=== PATIENT | female | born 1980 | race Caucasian/White ===

== ENCOUNTER 2018-05-14 13:12 | Inpatient (IN) | payer MEDICAID ==
[~2018-05-14] VITALS: Ht 165.1 cm; Wt 76.3 kg
[~2018-05-14 13:12] MED LIST: CITA10TA8 PO; HYDR25TA11 PO; OLAN2.5T3 PO; OXCA150T3 PO
--- NOTE | 2018-05-14 13:12 | NUR ---
CASIE on 1999 from [facility] walk-in clinic for med clearance, pt reports SI ("I want to swallow glass, my meds need to be changed but my Dr won't do anything"), AAO x4, pt reports she is med compliant; hx schitzoaffective, bipolar, panic d/o; pt change dinto gown, responds approp to staff, NAD, comfort measures provided, pt in safe environment, awaiting sitter, will continue to monitor frequently; personal belongings in bags x2 placed in locker; urine sample sent to lab.
[2018-05-14] MEDS ORDERED: BENZ0.5T35 PO (13:47)
[2018-05-14] MEDS ORDERED: LURA60TA PO (13:47)
[2018-05-14] MEDS ORDERED: TOPI50TA8 PO (13:47)
[2018-05-14] MEDS ORDERED: ALPR-475 PO (13:47)
[2018-05-14] MEDS ORDERED: DOXY50TA2 PO (13:47)
[2018-05-14] MEDS ORDERED: LITH300C PO (13:47)
[2018-05-14] MEDS ORDERED: DIVA-61 PO (13:47)
[2018-05-14] MEDS ORDERED: LOXA5CAP PO (13:47)
[2018-05-14] MEDS ORDERED: PROP10TA16 PO (13:47)
[2018-05-14 13:54] LABS: AMPHETAMINE SCREEN, URINE Negative (Negative); BARBITURATE SCREEN, URINE Negative (Negative); BENZODIAZEPINE SCREEN, URINE Negative (Negative); CANNABINOID SCREEN, URINE Negative (Negative); COCAINE SCREEN, URINE Negative (Negative); METHADONE SCREEN, URINE Negative (Negative); OPIATE SCREEN, URINE Negative (Negative)
--- NOTE | 2018-05-14 14:01 | NUR ---
pt upright on gurney awake, calm & comfortable, responds approp to staff, NAD, comfort measures provided, awaiting meal tray, pt remains in safe environment, awaiting sitter, will continue to monitor frequently.
[2018-05-14 14:15] LABS: BASOPHILS # (AUTO) 0.03 x10^3/uL (0-0.1); BASOPHILS % (AUTO) 0 % (0-1); EOSINOPHILS # (AUTO) 0.29 x10^3/uL (0-0.4); EOSINOPHILS % (AUTO) 2 % (1-7); LYMPHOCYTES # (AUTO) 2.54 x10^3/uL (1-3.4); LYMPHOCYTES % (AUTO) 22 % (22-44); MD NO; MEAN CORPUSCULAR HEMOGLOBIN 30.2 pg (27.0-34.8); MEAN CORPUSCULAR HGB CONC 34.3 g/dL (32.4-35.8); MEAN CORPUSCULAR VOLUME 88.2 fL (80-100); MEAN PLATELET VOLUME 8.3 fL (7.4-10.4); MONOCYTES # (AUTO) 0.58 x10^3/uL (0.2-0.8); MONOCYTES % (AUTO) 5 % (2-9); NEUTROPHILS # (AUTO) 8.25 x10^3/uL (1.8-6.8); NEUTROPHILS % (AUTO) 71 % (42-75); PLATELET COUNT 365 x10^3/uL (130-400); RED BLOOD COUNT 3.97 x10^6/uL (3.82-5.3); RED CELL DISTRIBUTION WIDTH 11.7 % (9.6-15.2)
[2018-05-14 14:26] LABS: ALANINE AMINOTRANSFERASE 24 U/L (12-78); ALBUMIN 3.4 g/dL (3.4-5.0); ANION GAP 9 mmol/L (5-15); CALCIUM 9.2 mg/dL (8.5-10.1); CHLORIDE 109 mmol/L (98-107); CREATININE 0.76 mg/dL (0.55-1.02); SALICYLATE LEVEL 2.3 mg/dL (2.8-20.0)
[2018-05-14] MEDS ORDERED: LORazepam 1MG TABLET ONE (14:30)
[2018-05-14] MEDS ORDERED: LORazepam 1MG TABLET PO ONE (14:30)
[2018-05-14 14:31] LABS: ALKALINE PHOSPHATASE 91 U/L (45-117); BILIRUBIN,TOTAL 0.3 mg/dL (0.2-1.0); TOTAL PROTEIN 7.1 g/dL (6.4-8.2)
[2018-05-14 14:34] LABS: ACETAMINOPHEN < 2 mcg/mL (10-30)
[2018-05-14 14:56] LABS: FREE T4 (FREE THYROXINE) 2.56 ng/dL (0.76-1.46)
--- NOTE | 2018-05-14 15:22 | NUR ---
pt transferred to rm 30, report given to FAUSTO Fraser at for consult, meal tray delivered.
--- NOTE | 2018-05-14 15:38 | NUR ---
ADMITTING DR AT BEDSIDE ASSUME CARE
[2018-05-14] MEDS ORDERED: LOXA25CA PO (15:52)
[2018-05-14] MEDS ORDERED: DIVA-59 PO (15:53)
[2018-05-14] MEDS ORDERED: LITH300T30 PO (15:54)
[2018-05-14] MEDS ORDERED: LITH600C PO (15:54)
[2018-05-14] MEDS: ENOXAPARIN 40 MG/0.4 ML SQ SCH (16:00)
--- NOTE | 2018-05-14 16:00 | NUR ---
PT "DOES NOT LIKE NEEDLES" REFUSED GABBYX
[2018-05-14 16:58] LABS: HEMOGLOBIN A1C 4.8 % (4.2-6.3)
--- NOTE | 2018-05-14 17:59 | NUR ---
PT REFUSES IV, WILL REATTEMPT AFTER XANAX
[2018-05-14] MEDS: METHIMAZOLE 5 MG TAB PO SCH (18:00)
[2018-05-14] MEDS: PROPRANOLOL 20 MG TABLET PO SCH ×2 (18:00→22:00)
--- NOTE | 2018-05-14 19:23 | NUR ---
placed call to dr. moore, pts depakote med is different from home, at home she takes 1250mg at night, order is only for 250mg. dr moore wants to keep dose at 250. pt also requesting medication to help her sleep but md declined.
--- NOTE | 2018-05-14 20:56 | NUR ---
RECEIVED REPORT FROM EVENS MONROE TO ASSUME PT. CARE. PHARMACY CALLED FOR NIGHT MEDS.
[2018-05-14] MEDS ORDERED: BENZTROPINE 1 MG TABLET ONE (21:28)
[2018-05-14] MEDS: LOXAPINE 25 MG PO SCH (22:39)
[2018-05-14] MEDS: DIVALPROEX 250 MG TAB.ER.24H PO SCH (22:39)
[2018-05-14] MEDS: LITHIUM CARBONATE 300 MG CAPSULE PO SCH (22:39)
[2018-05-14] MEDS: TOPIRAMATE 25 MG TABLET PO SCH (22:39)
[2018-05-14] MEDS: BENZTROPINE 1 MG TABLET PO SCH (22:39)
[2018-05-14] MEDS: SODIUM CHLORIDE 0.9% 1,000 ML IV SCH (22:40)
--- NOTE | 2018-05-14 22:50 | NUR ---
PT. HAS BEEN MEDICATED PER MAY. PT. REFUSIGN IV AND STATING "I WILL JUST DRINK WATER, I DON'T BELIEVE I NEED THAT AT THIS TIME." PT. DOES HAVE AUTOMOBILE CLUB INFORMATION CLERK IN PLACE AND UNHOOKS IT AND HOOKS IT BACK UP WHEN GOING TO THE BR. PT. AMBUALATE IN CHRISTINE WITH STEADY GAIT AND HAS BEEN COOPERATIVE WITH THIS NURSE THUS FAR. PT. WAS GIVEN A PILLOW PER REQUEST. PT. BRUSHED TEETH AND GAVE TOOTHBRUSH/PASTE BACK TO SITTER FOR SECUREMENT. VS WERE UPDATED AND STABLE. PT. DENIES ANY OTHER NEEDS. SITTER IS IN CHRISTINE FOR OBS.
--- NOTE | 2018-05-15 00:10 | NUR ---
RECEIVED REPORT ON PT FROM BILL HORNER.
--- NOTE | 2018-05-15 02:17 | NUR ---
PT RESTING CALMLY IN BED, RESP EVEN AND NON LABORED. SITTER AT DOOR. NO STATED NEEDS.
--- NOTE | 2018-05-15 03:12 | NUR ---
PT RESTING CALMLY IN BED WITH EYES CLOSED. NO NOTED DISSTRESS. NO STATED NEEDS. SITTER AT DOOR. RESP EVEN AND NON-LABORED.
--- NOTE | 2018-05-15 04:26 | NUR ---
PT RESTING CALMLY IN BED WITH EYES CLOSED. NO NOTED DISSTRESS. NO STATED NEEDS. SITTER AT DOOR. RESP EVEN AND NON-LABORED.
--- NOTE | 2018-05-15 05:13 | NUR ---
PT RESTING CALMLY IN BED WITH EYES CLOSED. NO STATED NEEDS. SITTER AT DOOR. RESP EVEN AND NON-LABORED.
[2018-05-15] MEDS: SODIUM CHLORIDE 0.9% 1,000 ML IV SCH ×2 (05:14→18:34)
[2018-05-15 05:47] LABS: BASOPHILS # (AUTO) 0.02 x10^3/uL (0-0.1); BASOPHILS % (AUTO) 0 % (0-1); EOSINOPHILS % (AUTO) 3 % (1-7); LYMPHOCYTES # (AUTO) 3.29 x10^3/uL (1-3.4); LYMPHOCYTES % (AUTO) 33 % (22-44); MD NO; MEAN CORPUSCULAR HEMOGLOBIN 30.4 pg (27.0-34.8); MEAN CORPUSCULAR HGB CONC 34.4 g/dL (32.4-35.8); MEAN CORPUSCULAR VOLUME 88.4 fL (80-100); MEAN PLATELET VOLUME 8.1 fL (7.4-10.4); MONOCYTES # (AUTO) 0.74 x10^3/uL (0.2-0.8); MONOCYTES % (AUTO) 7 % (2-9); NEUTROPHILS # (AUTO) 5.68 x10^3/uL (1.8-6.8); NEUTROPHILS % (AUTO) 57 % (42-75); PLATELET COUNT 328 x10^3/uL (130-400); RED BLOOD COUNT 3.53 x10^6/uL (3.82-5.3); RED CELL DISTRIBUTION WIDTH 11.6 % (9.6-15.2)
[2018-05-15 05:55] LABS: ALBUMIN 2.9 g/dL (3.4-5.0); ANION GAP 5 mmol/L (5-15); CALCIUM 8.6 mg/dL (8.5-10.1); CHLORIDE 112 mmol/L (98-107)
[2018-05-15 05:59] LABS: ALANINE AMINOTRANSFERASE 21 U/L (12-78); ALKALINE PHOSPHATASE 77 U/L (45-117); BILIRUBIN,TOTAL 0.2 mg/dL (0.2-1.0); CREATININE 0.66 mg/dL (0.55-1.02); TOTAL PROTEIN 5.9 g/dL (6.4-8.2)
--- NOTE | 2018-05-15 06:34 | NUR ---
PT RESTING CALMLY IN BED UNDER BED SHEET. NO NOTED DISSTRESS. NO STATED NEEDS. SITTER AT DOOR. RESP EVEN AND NON-LABORED.
--- NOTE | 2018-05-15 06:59 | NUR ---
BEDSIDE REPORT O KRISTINA. MEDS REQUESTED FROM PHARMACY
--- NOTE | 2018-05-15 07:58 | NUR ---
cardiac rhythm strip printed and placed on chart
[2018-05-15] MEDS: BENZTROPINE 1 MG TABLET PO SCH ×2 (12:30→20:45)
[2018-05-15] MEDS: LITHIUM CARBONATE 300 MG CAPSULE PO SCH ×2 (12:31→20:55)
[2018-05-15] MEDS: METHIMAZOLE 5 MG TAB PO SCH (12:31)
[2018-05-15] MEDS: TOPIRAMATE 25 MG TABLET PO SCH ×2 (12:31→20:45)
[2018-05-15] MEDS: PROPRANOLOL 20 MG TABLET PO SCH ×3 (12:32→22:00)
[2018-05-15] MEDS: LOXAPINE 25 MG PO SCH ×3 (12:32→20:44)
[2018-05-15 12:47] VITALS: BP 118/64
--- NOTE | 2018-05-15 15:03 | NUR ---
PT TO FLOOR WITH PRIMARY RN JASE.
[2018-05-15] MEDS: ENOXAPARIN 40 MG/0.4 ML SQ SCH (16:00)
[2018-05-15] MEDS ORDERED: PROPRANOLOL 10 MG TABLET ONE (16:06)
[2018-05-15 20:22] VITALS: BP 111/77
[2018-05-15] MEDS: DIVALPROEX 250 MG TAB.ER.24H PO SCH (20:44)
[2018-05-16 06:15] VITALS: BP 104/68
[2018-05-16] MEDS: PROPRANOLOL 20 MG TABLET PO SCH ×3 (06:17→20:48)
[2018-05-16] MEDS: SODIUM CHLORIDE 0.9% 1,000 ML IV SCH ×2 (07:54→19:42)
[2018-05-16] MEDS: LOXAPINE 25 MG PO SCH ×3 (08:08→20:47)
[2018-05-16] MEDS: BENZTROPINE 1 MG TABLET PO SCH ×2 (08:08→20:47)
[2018-05-16] MEDS: TOPIRAMATE 25 MG TABLET PO SCH ×2 (08:09→20:48)
[2018-05-16] MEDS: METHIMAZOLE 5 MG TAB PO SCH (08:09)
[2018-05-16] MEDS: LITHIUM CARBONATE 300 MG CAPSULE PO SCH ×2 (08:09→20:46)
[2018-05-16 08:41] LABS: FREE T4 (FREE THYROXINE) 2.11 ng/dL (0.76-1.46)
[2018-05-16 08:42] LABS: THYROID STIMULATING HORMONE < 0.005 mIU/L (0.358-3.740)
[2018-05-16] MEDS: ENOXAPARIN 40 MG/0.4 ML SQ SCH (16:00)
[2018-05-16 18:52] VITALS: BP 115/77
[2018-05-16] MEDS: DIVALPROEX 250 MG TAB.ER.24H PO SCH (20:48)
[2018-05-17 06:34] VITALS: BP 100/65
[2018-05-17] MEDS: PROPRANOLOL 20 MG TABLET PO SCH ×3 (06:35→20:49)
[2018-05-17] MEDS: TOPIRAMATE 25 MG TABLET PO SCH ×2 (08:59→20:49)
[2018-05-17] MEDS: METHIMAZOLE 5 MG TAB PO SCH (08:59)
[2018-05-17] MEDS: BENZTROPINE 1 MG TABLET PO SCH ×2 (09:00→20:49)
[2018-05-17] MEDS: LOXAPINE 25 MG PO SCH ×3 (09:00→20:48)
[2018-05-17] MEDS: LITHIUM CARBONATE 300 MG CAPSULE PO SCH ×2 (09:00→20:48)
[2018-05-17] MEDS: NORGESTIMATE-ETHINYL ESTRADIOL TABLET PO SCH (09:15)
[2018-05-17] MEDS: SODIUM CHLORIDE 0.9% 1,000 ML IV SCH ×2 (10:34→22:38)
[2018-05-17] MEDS: NICOTINE 14MG/24 HR PATCH.TD24 TD SCH (11:51)
[2018-05-17 14:05] VITALS: BP 117/80
[2018-05-17] MEDS: ENOXAPARIN 40 MG/0.4 ML SQ SCH (16:35)
[2018-05-17 19:21] VITALS: BP 112/77
[2018-05-17] MEDS: DIVALPROEX 250 MG TAB.ER.24H PO SCH (20:49)
[2018-05-18 01:11] VITALS: BP 97/66
[2018-05-18 08:19] VITALS: BP 114/80
[2018-05-18] MEDS: BENZTROPINE 1 MG TABLET PO SCH ×2 (08:24→20:11)
[2018-05-18] MEDS: TOPIRAMATE 25 MG TABLET PO SCH ×2 (08:24→20:09)
[2018-05-18] MEDS: PROPRANOLOL 20 MG TABLET PO SCH ×3 (08:24→20:10)
[2018-05-18] MEDS: LOXAPINE 25 MG PO SCH ×3 (08:24→20:11)
[2018-05-18] MEDS: METHIMAZOLE 5 MG TAB PO SCH (08:24)
[2018-05-18] MEDS: LITHIUM CARBONATE 300 MG CAPSULE PO SCH ×2 (08:25→20:11)
[2018-05-18] MEDS: NORGESTIMATE-ETHINYL ESTRADIOL TABLET PO SCH (08:25)
[2018-05-18 09:02] LABS: FREE T4 (FREE THYROXINE) 2.31 ng/dL (0.76-1.46)
[2018-05-18 09:05] LABS: THYROID STIMULATING HORMONE < 0.005 mIU/L (0.358-3.740)
[2018-05-18] MEDS: NICOTINE 14MG/24 HR PATCH.TD24 TD SCH (12:06)
[2018-05-18] MEDS: SODIUM CHLORIDE 0.9% 1,000 ML IV SCH ×2 (13:03→19:58)
[2018-05-18 13:37] VITALS: BP 118/79
[2018-05-18] MEDS: ENOXAPARIN 40 MG/0.4 ML SQ SCH (15:09)
[2018-05-18 19:08] VITALS: BP 111/71
[2018-05-18] MEDS: DIVALPROEX 250 MG TAB.ER.24H PO SCH (20:12)
[2018-05-19 01:38] VITALS: BP 104/70
[2018-05-19 05:47] LABS: CREATININE 0.62 mg/dL (0.55-1.02)
[2018-05-19 08:06] LABS: FREE T4 (FREE THYROXINE) 1.99 ng/dL (0.76-1.46)
[2018-05-19 08:08] LABS: THYROID STIMULATING HORMONE < 0.005 mIU/L (0.358-3.740)
[2018-05-19 08:53] VITALS: BP 113/76
[2018-05-19] MEDS: LOXAPINE 25 MG PO SCH ×3 (08:56→20:38)
[2018-05-19] MEDS: PROPRANOLOL 20 MG TABLET PO SCH ×3 (08:56→20:38)
[2018-05-19] MEDS: METHIMAZOLE 5 MG TAB PO SCH (08:57)
[2018-05-19] MEDS: LITHIUM CARBONATE 300 MG CAPSULE PO SCH ×2 (08:57→20:39)
[2018-05-19] MEDS: TOPIRAMATE 25 MG TABLET PO SCH ×2 (08:57→20:38)
[2018-05-19] MEDS: NORGESTIMATE-ETHINYL ESTRADIOL TABLET PO SCH (08:57)
[2018-05-19] MEDS: BENZTROPINE 1 MG TABLET PO SCH ×2 (08:57→20:39)
[2018-05-19] MEDS: NICOTINE 14MG/24 HR PATCH.TD24 TD SCH (12:55)
[2018-05-19 13:17] VITALS: BP 118/79
[2018-05-19] MEDS: SODIUM CHLORIDE 0.9% 1,000 ML IV SCH (15:54)
[2018-05-19] MEDS: ENOXAPARIN 40 MG/0.4 ML SQ SCH (15:58)
[2018-05-19 19:35] VITALS: BP 103/66
[2018-05-19] MEDS: DIVALPROEX 250 MG TAB.ER.24H PO SCH (20:38)
[2018-05-20] MEDS: SODIUM CHLORIDE 0.9% 1,000 ML IV SCH ×2 (05:14→18:34)
[2018-05-20 07:54] VITALS: BP 109/40
[2018-05-20 08:05] LABS: BASOPHILS # (AUTO) 0.03 x10^3/uL (0-0.1); BASOPHILS % (AUTO) 0 % (0-1); EOSINOPHILS # (AUTO) 0.25 x10^3/uL (0-0.4); EOSINOPHILS % (AUTO) 3 % (1-7); LYMPHOCYTES % (AUTO) 28 % (22-44); MD NO; MEAN CORPUSCULAR HEMOGLOBIN 29.4 pg (27.0-34.8); MEAN CORPUSCULAR HGB CONC 33.5 g/dL (32.4-35.8); MEAN CORPUSCULAR VOLUME 87.7 fL (80-100); MEAN PLATELET VOLUME 7.9 fL (7.4-10.4); MONOCYTES # (AUTO) 0.52 x10^3/uL (0.2-0.8); MONOCYTES % (AUTO) 5 % (2-9); NEUTROPHILS # (AUTO) 6.09 x10^3/uL (1.8-6.8); NEUTROPHILS % (AUTO) 64 % (42-75); PLATELET COUNT 386 x10^3/uL (130-400); RED BLOOD COUNT 3.96 x10^6/uL (3.82-5.3); RED CELL DISTRIBUTION WIDTH 11.4 % (9.6-15.2)
[2018-05-20 08:18] LABS: ALBUMIN 3.2 g/dL (3.4-5.0); ANION GAP 5 mmol/L (5-15); CALCIUM 9.1 mg/dL (8.5-10.1); CHLORIDE 112 mmol/L (98-107)
[2018-05-20 08:33] LABS: ALANINE AMINOTRANSFERASE 22 U/L (12-78); ALKALINE PHOSPHATASE 86 U/L (45-117); BILIRUBIN,TOTAL 0.3 mg/dL (0.2-1.0); CREATININE 0.68 mg/dL (0.55-1.02); FREE T4 (FREE THYROXINE) 2.32 ng/dL (0.76-1.46); TOTAL PROTEIN 6.7 g/dL (6.4-8.2)
[2018-05-20 08:36] LABS: THYROID STIMULATING HORMONE < 0.005 mIU/L (0.358-3.740)
[2018-05-20] MEDS: LOXAPINE 25 MG PO SCH ×3 (08:48→20:20)
[2018-05-20] MEDS: BENZTROPINE 1 MG TABLET PO SCH ×2 (08:50→20:19)
[2018-05-20] MEDS: METHIMAZOLE 5 MG TAB PO SCH (08:51)
[2018-05-20] MEDS: LITHIUM CARBONATE 300 MG CAPSULE PO SCH ×2 (08:52→20:21)
[2018-05-20] MEDS: PROPRANOLOL 20 MG TABLET PO SCH ×3 (08:52→20:19)
[2018-05-20] MEDS: TOPIRAMATE 25 MG TABLET PO SCH ×2 (08:53→20:19)
[2018-05-20] MEDS: NORGESTIMATE-ETHINYL ESTRADIOL TABLET PO SCH (08:54)
[2018-05-20 12:17] VITALS: BP 89/58
[2018-05-20] MEDS: NICOTINE 14MG/24 HR PATCH.TD24 TD SCH (13:00)
[2018-05-20 14:57] VITALS: BP 119/84
[2018-05-20] MEDS: ENOXAPARIN 40 MG/0.4 ML SQ SCH (16:00)
[2018-05-20 16:26] VITALS: BP 111/77
[2018-05-20 18:43] VITALS: BP 99/64
[2018-05-20] MEDS: DIVALPROEX 250 MG TAB.ER.24H PO SCH (20:18)
[2018-05-21] VITALS: BP 95/58
[2018-05-21] MEDS: PROPRANOLOL 20 MG TABLET PO SCH (05:36)
[2018-05-21 07:21] VITALS: BP 105/73
[2018-05-21] MEDS: SODIUM CHLORIDE 0.9% 1,000 ML IV SCH ×2 (07:54→20:03)
[2018-05-21] MEDS: BENZTROPINE 1 MG TABLET PO SCH ×2 (08:18→20:01)
[2018-05-21] MEDS: METHIMAZOLE 5 MG TAB PO SCH (08:18)
[2018-05-21] MEDS: TOPIRAMATE 25 MG TABLET PO SCH ×2 (08:19→20:01)
[2018-05-21] MEDS: LOXAPINE 25 MG PO SCH ×3 (08:19→20:01)
[2018-05-21] MEDS: LITHIUM CARBONATE 300 MG CAPSULE PO SCH ×2 (08:20→23:55)
[2018-05-21] MEDS: NORGESTIMATE-ETHINYL ESTRADIOL TABLET PO SCH (08:20)
[2018-05-21] MEDS: NICOTINE 14MG/24 HR PATCH.TD24 TD SCH (12:31)
[2018-05-21 13:30] VITALS: BP 114/75
[2018-05-21] MEDS: PROPRANOLOL 10 MG TABLET PO SCH ×2 (14:41→23:57)
[2018-05-21] MEDS: ENOXAPARIN 40 MG/0.4 ML SQ SCH (15:42)
[2018-05-21 19:08] VITALS: BP 96/60
[2018-05-21] MEDS: DOCUSATE 100 MG CAPSULE PO PRN (20:01)
[2018-05-21] MEDS: DIVALPROEX 250 MG TAB.ER.24H PO SCH (20:01)
[2018-05-21 23:56] VITALS: BP 101/65
[2018-05-22 02:03] VITALS: BP 95/60
[2018-05-22 06:13] VITALS: BP 94/63
[2018-05-22] MEDS: PROPRANOLOL 10 MG TABLET PO SCH ×3 (06:14→21:12)
[2018-05-22 06:34] LABS: CREATININE 0.65 mg/dL (0.55-1.02)
[2018-05-22 07:34] VITALS: BP 95/66
[2018-05-22] MEDS: LITHIUM CARBONATE 300 MG CAPSULE PO SCH ×2 (09:08→21:12)
[2018-05-22] MEDS: METHIMAZOLE 5 MG TAB PO SCH (09:08)
[2018-05-22] MEDS: BENZTROPINE 1 MG TABLET PO SCH ×2 (09:09→21:12)
[2018-05-22] MEDS: LOXAPINE 25 MG PO SCH ×3 (09:09→21:11)
[2018-05-22] MEDS: TOPIRAMATE 25 MG TABLET PO SCH ×2 (09:09→21:11)
[2018-05-22] MEDS: SODIUM CHLORIDE 0.9% 1,000 ML IV SCH (10:34)
[2018-05-22] MEDS: NORGESTIMATE-ETHINYL ESTRADIOL TABLET PO SCH (11:18)
[2018-05-22] MEDS: DOCUSATE 100 MG CAPSULE PO PRN (11:18)
[2018-05-22 13:33] VITALS: BP 113/78
[2018-05-22] MEDS: NICOTINE 14MG/24 HR PATCH.TD24 TD SCH (14:46)
[2018-05-22] MEDS: ENOXAPARIN 40 MG/0.4 ML SQ SCH (16:00)
[2018-05-22 18:45] VITALS: BP 117/81
[2018-05-22] MEDS: DIVALPROEX 250 MG TAB.ER.24H PO SCH (21:11)
[2018-05-23 00:16] VITALS: BP 94/58
[2018-05-23] MEDS: PROPRANOLOL 10 MG TABLET PO SCH ×2 (08:06→14:19)
[2018-05-23] MEDS: NORGESTIMATE-ETHINYL ESTRADIOL TABLET PO SCH (08:06)
[2018-05-23] MEDS: TOPIRAMATE 25 MG TABLET PO SCH (08:06)
[2018-05-23] MEDS: BENZTROPINE 1 MG TABLET PO SCH (08:07)
[2018-05-23] MEDS: METHIMAZOLE 5 MG TAB PO SCH (08:07)
[2018-05-23] MEDS: LITHIUM CARBONATE 300 MG CAPSULE PO SCH (08:07)
[2018-05-23] MEDS: LOXAPINE 25 MG PO SCH ×2 (08:07→14:19)
[2018-05-23] MEDS: DOCUSATE 100 MG CAPSULE PO PRN (12:05)
[2018-05-23] MEDS: NICOTINE 14MG/24 HR PATCH.TD24 TD SCH (12:05)
[2018-05-23] MEDS ORDERED: NICO-486 TD (14:34)
[2018-05-23] MEDS ORDERED: PROP10TA16 PO (14:34)
[2018-05-23] MEDS ORDERED: METH5TAB6 PO (14:34)
== END 2018-05-23 15:58 | disposition home or self-care (01) | DRG 644 ==
LOC: ED 15:09 → EDIP 15:35 → 4EST 05-15 15:27
PROVIDERS: ADMIT Internal Medicine; ATTEND Internal Medicine
DX: E05.90 Thyrotoxicosis, unspecified without thyrotoxic crisis or storm (principal); R45.851 Suicidal ideations; F25.9 Schizoaffective disorder, unspecified; F31.9 Bipolar disorder, unspecified; F41.9 Anxiety disorder, unspecified; Z79.899 Other long term (current) drug therapy; Z81.8 Family history of other mental and behavioral disorders; Z88.0 Allergy status to penicillin; I50.9 Heart failure, unspecified
CPT/HCPCS: 36415; 76536; 78013; 80053; 80178; 80307; 80329; 82565; 83036; 83520; 83735; 84439; 84443; 84445; 84481; 84703; 85025; 93005; 93306; 99285; G0378; A9516; C9898; G0480

== ENCOUNTER 2018-06-24 18:43 | Inpatient (IN) | payer MEDICAID ==
[~2018-06-24] VITALS: Ht 167.6 cm; Wt 72.0 kg
[~2018-06-24 18:43] MED LIST changes: +ALPR-475 PO; +BENZ0.5T35 PO; +DIVA-59 PO; +DIVA-61 PO; +DOXY50TA2 PO; +LITH300C PO; +LITH300T30 PO; +LITH600C PO; +LOXA25CA PO; +LOXA5CAP PO; +LURA60TA PO; +METH5TAB6 PO; +NICO-486 TD; +PROP10TA16 PO; +TOPI50TA8 PO
[2018-06-24 19:11] LABS: BASOPHILS # (AUTO) 0.02 x10^3/uL (0-0.1); BASOPHILS % (AUTO) 0 % (0-1); EOSINOPHILS # (AUTO) 0.27 x10^3/uL (0-0.4); EOSINOPHILS % (AUTO) 2 % (1-7); LYMPHOCYTES # (AUTO) 3.92 x10^3/uL (1-3.4); LYMPHOCYTES % (AUTO) 28 % (22-44); MD NO; MEAN CORPUSCULAR HEMOGLOBIN 29.4 pg (27.0-34.8); MEAN CORPUSCULAR VOLUME 86.4 fL (80-100); MEAN PLATELET VOLUME 7.8 fL (7.4-10.4); MONOCYTES # (AUTO) 0.95 x10^3/uL (0.2-0.8); MONOCYTES % (AUTO) 7 % (2-9); NEUTROPHILS % (AUTO) 64 % (42-75); PLATELET COUNT 450 x10^3/uL (130-400); RED BLOOD COUNT 4.33 x10^6/uL (3.82-5.3); RED CELL DISTRIBUTION WIDTH 12.5 % (9.6-15.2)
[2018-06-24 19:17] LABS: ALBUMIN 3.9 g/dL (3.4-5.0); ANION GAP 7 mmol/L (5-15); CALCIUM 9.6 mg/dL (8.5-10.1); CHLORIDE 109 mmol/L (98-107); CREATININE 0.61 mg/dL (0.55-1.02); SALICYLATE LEVEL 2.3 mg/dL (2.8-20.0)
[2018-06-24 19:21] LABS: AMPHETAMINE SCREEN, URINE Negative (Negative); BARBITURATE SCREEN, URINE Negative (Negative); BENZODIAZEPINE SCREEN, URINE Negative (Negative); CANNABINOID SCREEN, URINE Negative (Negative); COCAINE SCREEN, URINE Negative (Negative); METHADONE SCREEN, URINE Negative (Negative); OPIATE SCREEN, URINE Negative (Negative)
[2018-06-24 19:24] LABS: ACETAMINOPHEN < 2 mcg/mL (10-30)
--- NOTE | 2018-06-24 19:24 | NUR ---
PT RESTING ON GURNEY WITH SITTER AT BEDSIDE. 03/05 BELONGINGS BAG PLACED IN LOCKER.
--- NOTE | 2018-06-24 20:40 | NUR ---
PT GIVEN DINNER. UPDATED ON PLAN OF CARE. COOPERATIVE AND RESTING AT THIS TIME. SITTER AT BEDSIDE
--- NOTE | 2018-06-24 22:56 | NUR ---
UPDATE GIVEN TO TELEPSYCH PHYSICIAN. PT MADE AWARE PHYSICIAN WILL BE SPEAKING WITH PT.
--- NOTE | 2018-06-25 01:05 | NUR ---
PT SLEEPING AT THIS TIME. VSS. SITTER AT BEDSIDE.
[2018-06-25 01:38] LABS: FREE T4 (FREE THYROXINE) 1.59 ng/dL (0.76-1.46); THYROID STIMULATING HORMONE < 0.005 mIU/L (0.358-3.740)
--- NOTE | 2018-06-25 02:12 | NUR ---
PT SLEEPING. VSS. SITTER AT BEDSIDE.
[2018-06-25] MEDS ORDERED: PROPRANOLOL 10 MG TABLET PO SCH (02:30)
[2018-06-25 03:04] VITALS: BP 110/67
[2018-06-25 07:10] VITALS: BP 109/70
[2018-06-25] MEDS: PROPRANOLOL 10 MG TABLET PO SCH ×3 (08:18→17:33)
[2018-06-25] MEDS: BENZTROPINE 1 MG TABLET PO SCH ×2 (08:20→20:11)
[2018-06-25] MEDS: LOXAPINE 25 MG PO SCH ×2 (08:20→20:11)
[2018-06-25] MEDS: METHIMAZOLE 5 MG TAB PO SCH (08:33)
[2018-06-25] MEDS ORDERED: LITHIUM CARBONATE 300 MG CAPSULE PO SCH (09:00)
[2018-06-25] MEDS: TOPIRAMATE 25 MG TABLET PO SCH ×2 (09:27→20:10)
[2018-06-25] MEDS: OLANZAPINE 5 MG TABLET PO PRN ×2 (15:10→20:26)
[2018-06-25 19:15] VITALS: BP 121/76
[2018-06-25] MEDS: LITHIUM CARBONATE 300 MG TABLET.ER PO SCH (20:10)
[2018-06-25] MEDS: NICOTINE 14MG/24 HR PATCH.TD24 TD SCH (20:10)
[2018-06-25] MEDS: MELATONIN 3 MG TABLET PO SCH (20:11)
[2018-06-25] MEDS ORDERED: DIVALPROEX 250 MG TABLET.DR PO SCH (21:00)
[2018-06-25] MEDS ORDERED: LITHIUM CARBONATE 300 MG TABLET.ER PO SCH (21:00)
[2018-06-26 08:00] VITALS: BP 124/83
[2018-06-26] MEDS: PROPRANOLOL 10 MG TABLET PO SCH ×3 (08:46→18:22)
[2018-06-26] MEDS: BENZTROPINE 1 MG TABLET PO SCH ×2 (08:46→20:09)
[2018-06-26] MEDS: LITHIUM CARBONATE 300 MG CAPSULE PO SCH (08:47)
[2018-06-26] MEDS: LOXAPINE 25 MG PO SCH ×2 (08:47→20:23)
[2018-06-26] MEDS: TOPIRAMATE 25 MG TABLET PO SCH ×2 (08:48→20:09)
[2018-06-26] MEDS: METHIMAZOLE 5 MG TAB PO SCH (08:53)
[2018-06-26] MEDS: OLANZAPINE 5 MG TABLET PO PRN ×2 (08:59→18:52)
[2018-06-26] MEDS: NICOTINE 14MG/24 HR PATCH.TD24 TD SCH (10:45)
[2018-06-26] MEDS: MELATONIN 3 MG TABLET PO SCH (20:08)
[2018-06-26] MEDS: DIVALPROEX 250 MG TABLET.DR PO SCH (20:09)
[2018-06-26] MEDS: LITHIUM CARBONATE 300 MG TABLET.ER PO SCH (20:22)
[2018-06-26] MEDS ORDERED: ACETAMINOPHEN 325 MG TABLET ONE (21:51)
[2018-06-26] MEDS ORDERED: ACETAMINOPHEN 325 MG TABLET PO PRN (22:00)
[2018-06-27] MEDS: LORazepam 1MG TABLET PO PRN (02:02)
[2018-06-27] MEDS: PROPRANOLOL 10 MG TABLET PO SCH ×3 (08:51→16:56)
[2018-06-27] MEDS: TOPIRAMATE 25 MG TABLET PO SCH ×2 (08:51→19:58)
[2018-06-27] MEDS: LOXAPINE 25 MG PO SCH ×3 (08:51→19:57)
[2018-06-27] MEDS: BENZTROPINE 1 MG TABLET PO SCH ×2 (08:55→19:58)
[2018-06-27] MEDS: DIVALPROEX 500 MG TABLET.DR PO SCH (08:55)
[2018-06-27] MEDS: METHIMAZOLE 5 MG TAB PO SCH (09:00)
[2018-06-27] MEDS: LITHIUM CARBONATE 300 MG CAPSULE PO SCH (09:06)
[2018-06-27 09:13] VITALS: BP 103/71
[2018-06-27] MEDS: NICOTINE 14MG/24 HR PATCH.TD24 TD SCH (12:08)
[2018-06-27] MEDS: LITHIUM CARBONATE 300 MG TABLET.ER PO SCH (19:58)
[2018-06-27] MEDS: OLANZAPINE 5 MG TABLET PO PRN (19:59)
[2018-06-27] MEDS: MELATONIN 3 MG TABLET PO SCH (19:59)
[2018-06-27] MEDS: DIVALPROEX 250 MG TABLET.DR PO SCH (19:59)
[2018-06-28 08:17] VITALS: BP 100/69
[2018-06-28] MEDS: METHIMAZOLE 5 MG TAB PO SCH (08:24)
[2018-06-28] MEDS: TOPIRAMATE 25 MG TABLET PO SCH ×2 (08:24→20:31)
[2018-06-28] MEDS: DIVALPROEX 500 MG TABLET.DR PO SCH (08:24)
[2018-06-28] MEDS: PROPRANOLOL 10 MG TABLET PO SCH ×3 (08:26→17:47)
[2018-06-28] MEDS: BENZTROPINE 1 MG TABLET PO SCH ×2 (08:26→20:32)
[2018-06-28] MEDS: LITHIUM CARBONATE 300 MG CAPSULE PO SCH (08:27)
[2018-06-28] MEDS: LOXAPINE 25 MG PO SCH ×2 (08:27→20:33)
[2018-06-28] MEDS: NICOTINE 14MG/24 HR PATCH.TD24 TD SCH (12:54)
[2018-06-28] MEDS: LITHIUM CARBONATE 300 MG TABLET.ER PO SCH (20:32)
[2018-06-28] MEDS: MELATONIN 3 MG TABLET PO SCH (20:32)
[2018-06-28] MEDS: OLANZAPINE 5 MG TABLET PO PRN (20:32)
[2018-06-28] MEDS: DIVALPROEX 250 MG TABLET.DR PO SCH (20:33)
[2018-06-29 07:57] VITALS: BP 104/68
[2018-06-29] MEDS: LITHIUM CARBONATE 300 MG CAPSULE PO SCH (08:53)
[2018-06-29] MEDS: TOPIRAMATE 25 MG TABLET PO SCH ×2 (08:54→20:14)
[2018-06-29] MEDS: DIVALPROEX 500 MG TABLET.DR PO SCH (08:54)
[2018-06-29] MEDS: PROPRANOLOL 10 MG TABLET PO SCH ×3 (08:54→17:38)
[2018-06-29] MEDS: BENZTROPINE 1 MG TABLET PO SCH ×2 (08:54→20:15)
[2018-06-29] MEDS: METHIMAZOLE 5 MG TAB PO SCH (08:55)
[2018-06-29] MEDS: LOXAPINE 25 MG PO SCH ×2 (08:55→20:13)
[2018-06-29] MEDS: NICOTINE 14MG/24 HR PATCH.TD24 TD SCH ×2 (12:00→12:57)
[2018-06-29] MEDS: OLANZAPINE 5 MG TABLET PO PRN ×2 (17:42→18:38)
[2018-06-29 20:05] VITALS: BP 118/80
[2018-06-29] MEDS: MELATONIN 3 MG TABLET PO SCH (20:14)
[2018-06-29] MEDS: LORazepam 1MG TABLET PO PRN (20:14)
[2018-06-29] MEDS: LITHIUM CARBONATE 300 MG TABLET.ER PO SCH (20:14)
[2018-06-29] MEDS: DIVALPROEX 250 MG TABLET.DR PO SCH (20:14)
[2018-06-30] MEDS: PROPRANOLOL 10 MG TABLET PO SCH ×3 (10:04→16:50)
[2018-06-30] MEDS: DIVALPROEX 500 MG TABLET.DR PO SCH (10:04)
[2018-06-30] MEDS: BENZTROPINE 1 MG TABLET PO SCH ×2 (10:04→20:25)
[2018-06-30] MEDS: LOXAPINE 25 MG PO SCH ×2 (10:04→20:22)
[2018-06-30] MEDS: LITHIUM CARBONATE 300 MG CAPSULE PO SCH (10:05)
[2018-06-30] MEDS: TOPIRAMATE 25 MG TABLET PO SCH ×2 (10:07→20:22)
[2018-06-30] MEDS: NICOTINE 14MG/24 HR PATCH.TD24 TD SCH (12:13)
[2018-06-30] MEDS: OLANZAPINE 5 MG TABLET PO PRN (17:54)
[2018-06-30] MEDS: DIVALPROEX 250 MG TABLET.DR PO SCH (20:25)
[2018-06-30] MEDS: MELATONIN 3 MG TABLET PO SCH (20:25)
[2018-06-30] MEDS: LITHIUM CARBONATE 300 MG TABLET.ER PO SCH (20:25)
[2018-07-01 08:44] VITALS: BP 118/80
[2018-07-01] MEDS: DIVALPROEX 500 MG TABLET.DR PO SCH (10:39)
[2018-07-01] MEDS: BENZTROPINE 1 MG TABLET PO SCH (10:39)
[2018-07-01] MEDS: NICOTINE 14MG/24 HR PATCH.TD24 TD SCH (10:39)
[2018-07-01] MEDS: METHIMAZOLE 5 MG TAB PO SCH ×2 (10:39→16:27)
[2018-07-01] MEDS: LOXAPINE 25 MG PO SCH (10:39)
[2018-07-01] MEDS: LITHIUM CARBONATE 300 MG CAPSULE PO SCH (10:40)
[2018-07-01] MEDS: PROPRANOLOL 10 MG TABLET PO SCH ×3 (10:40→16:27)
[2018-07-01] MEDS: TOPIRAMATE 25 MG TABLET PO SCH (10:47)
[2018-07-01 12:17] VITALS: BP 106/76
[2018-07-01] MEDS ORDERED: DIVA-59 PO (16:41)
[2018-07-01] MEDS ORDERED: LOXA25CA PO (16:41)
[2018-07-01] MEDS ORDERED: METH5TAB6 PO (16:41)
[2018-07-01] MEDS ORDERED: DIVA-61 PO (16:41)
[2018-07-01] MEDS ORDERED: OLAN5TAB9 PO (16:41)
== END 2018-07-01 17:36 | DRG 918 ==
LOC: ED 19:41 → EDIP 06-25 00:44 → 2N 06-25 02:55
PROVIDERS: ADMIT Internal Medicine; ATTEND Internal Medicine
DX: T56.892A Toxic effect of other metals, intentional self-harm, initial encounter (principal); F31.9 Bipolar disorder, unspecified; E05.90 Thyrotoxicosis, unspecified without thyrotoxic crisis or storm; Z63.8 Other specified problems related to primary support group; F25.9 Schizoaffective disorder, unspecified; Y92.89 Other specified places as the place of occurrence of the external cause
CPT/HCPCS: 36415; 80048; 80164; 80178; 80307; 80329; 82040; 84439; 84443; 84703; 85025; 99285; G0378; G0480

== ENCOUNTER 2018-08-04 16:14 | Emergency (ER) | payer MEDICAID ==
[~2018-08-04 16:14] MED LIST changes: +OLAN5TAB9 PO
--- NOTE | 2018-08-04 16:26 | NUR ---
NO ANSWER FROM TRIAGE
--- NOTE | 2018-08-04 16:30 | NUR ---
NO ANSWER FROM TRIAGE
--- NOTE | 2018-08-04 16:38 | NUR ---
NO ANSWER FROM TRIAGE. PT NOT FOUND IN LOBBY
== END 2018-08-04 16:57 | disposition left against medical advice (07) ==
LOC: ED 16:46
DX: Z53.21 Procedure and treatment not carried out due to patient leaving prior to being seen by health care provider (principal)

== ENCOUNTER 2018-08-07 11:27 | Inpatient (IN) | payer MEDICAID ==
[~2018-08-07] VITALS: Ht 170.2 cm; Wt 72.2 kg
[2018-08-07] MEDS ORDERED: POLYETHYLENE GLYCOL 17 GM PACKET PO PRN (12:30)
[2018-08-07] MEDS ORDERED: ACETAMINOPHEN 325 MG TABLET PO PRN (12:30)
[2018-08-07] MEDS ORDERED: DOCUSATE 100 MG CAPSULE PO PRN (12:30)
[2018-08-07] MEDS ORDERED: BISACODYL 10 MG SUPP PR PRN (12:30)
[2018-08-07] MEDS ORDERED: ONDANSETRON ODT 4 MG PO PRN (12:30)
[2018-08-07] MEDS ORDERED: ARIP20TA5 PO (12:54)
[2018-08-07] MEDS ORDERED: MIRT15TA PO (12:54)
[2018-08-07] MEDS ORDERED: METH5TAB6 PO (12:54)
[2018-08-07] MEDS ORDERED: DIVA500T2 PO (12:54)
[2018-08-07] MEDS ORDERED: LITH300C PO (12:54)
[2018-08-07] MEDS ORDERED: TOPI100T8 PO (12:54)
[2018-08-07] MEDS ORDERED: BENZ0.5T35 PO (12:54)
[2018-08-07 13:24] VITALS: BP 96/65
[2018-08-08 07:20] VITALS: BP 106/71
[2018-08-08] MEDS ORDERED: ARIPIPRAZOLE 10 MG TABLET PO SCH (09:00)
[2018-08-08] MEDS ORDERED: ARIPIPRAZOLE 5 MG TABLET ONE (09:28)
[2018-08-08] MEDS: NICOTINE 14MG/24 HR PATCH.TD24 TD SCH (09:33)
[2018-08-08] MEDS: OXCARBAZEPINE 150 MG TABLET PO SCH ×2 (09:35→21:55)
[2018-08-08] MEDS: ARIPIPRAZOLE 10 MG TABLET PO SCH (09:36)
[2018-08-08] MEDS ORDERED: OLANZAPINE ODT 10MG ONE (16:20)
[2018-08-08] MEDS ORDERED: OLANZAPINE ODT 10MG PO PRN (16:30)
[2018-08-08 20:00] VITALS: BP 114/76
[2018-08-09] MEDS ORDERED: ALPRazolam 1MG TAB PO ONE (05:30)
[2018-08-09] MEDS: OXCARBAZEPINE 150 MG TABLET PO SCH ×2 (08:57→20:21)
[2018-08-09] MEDS: ARIPIPRAZOLE 10 MG TABLET PO SCH (08:57)
[2018-08-09 09:00] VITALS: BP 98/63
[2018-08-09] MEDS: NICOTINE 14MG/24 HR PATCH.TD24 TD SCH (09:02)
[2018-08-09 19:57] VITALS: BP 120/86
[2018-08-09] MEDS: LORazepam 1MG TABLET PO PRN (20:21)
[2018-08-10 07:51] VITALS: BP 159/105
[2018-08-10] MEDS: OXCARBAZEPINE 150 MG TABLET PO SCH (08:50)
[2018-08-10] MEDS: ARIPIPRAZOLE 10 MG TABLET PO SCH (08:50)
[2018-08-10] MEDS: NICOTINE 14MG/24 HR PATCH.TD24 TD SCH (08:50)
[2018-08-10] MEDS: LORazepam 1MG TABLET PO PRN (10:33)
[2018-08-10] MEDS ORDERED: HALOPERIDOL 5 MG/ML IM ONE (18:30)
[2018-08-11] MEDS ORDERED: ARIPIPRAZOLE 10 MG TABLET PO SCH (09:00)
== END 2018-08-10 18:55 | disposition home or self-care (01) | DRG 885 ==
LOC: 3E 12:42
PROVIDERS: ADMIT Psychiatry & Neurology Psychosomatic Medicine; ATTEND Psychiatry & Neurology Psychosomatic Medicine
DX: F25.0 Schizoaffective disorder, bipolar type (principal); R45.851 Suicidal ideations; Z79.899 Other long term (current) drug therapy; Z88.0 Allergy status to penicillin; Z88.8 Allergy status to other drugs, medicaments and biological substances; F17.200 Nicotine dependence, unspecified, uncomplicated; Z91.19 Patient's noncompliance with other medical treatment and regimen; F32.9 Major depressive disorder, single episode, unspecified; D72.829 Elevated white blood cell count, unspecified
CPT/HCPCS: 71045; J1630

== ENCOUNTER 2018-09-01 01:43 | Emergency (ER) | payer MEDICAID ==
[~2018-09-01] VITALS: Ht 162.6 cm; Wt 79.2 kg
[~2018-09-01 01:43] MED LIST changes: +ARIP20TA5 PO; +DIVA500T2 PO; +MIRT15TA PO; +TOPI100T8 PO
[2018-09-01 01:48] VITALS: BP 125/86
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
[2018-09-01 02:24] LABS: HCG UR SG 1.007 (1.003-1.030)
--- NOTE | 2018-09-01 02:24 | NUR ---
CALLED FROM [facility]
[2018-09-01 02:34] LABS: AMPHETAMINE SCREEN, URINE Negative (Negative); BARBITURATE SCREEN, URINE Negative (Negative); BENZODIAZEPINE SCREEN, URINE Negative (Negative); CANNABINOID SCREEN, URINE Negative (Negative); COCAINE SCREEN, URINE Negative (Negative); METHADONE SCREEN, URINE Negative (Negative); OPIATE SCREEN, URINE Negative (Negative)
--- NOTE | 2018-09-01 02:45 | NUR ---
NAX2
--- NOTE | 2018-09-01 03:16 | NUR ---
NAX3 LWBS
== END 2018-09-01 03:18 | disposition left against medical advice (07) ==
LOC: ED 03:12
DX: Z53.21 Procedure and treatment not carried out due to patient leaving prior to being seen by health care provider (principal)
CPT/HCPCS: 80307; 81025

== ENCOUNTER 2020-02-27 14:25 | Emergency (ER) | payer MEDICAID ==
[~2020-02-27] VITALS: Ht 167.6 cm; Wt 68.1 kg
[~2020-02-27 14:25] MED LIST changes: -ALPR-475 PO; +ALPR0.5T7 PO; -DOXY50TA2 PO; +DOXY50TA3 PO; +HYDR-826 PO; -HYDR25TA11 PO; +MIRT-37 PO; -MIRT15TA PO
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
[2020-02-27 14:55] LABS: BASOPHILS % (AUTO) 0 % (0-1); EOSINOPHILS % (AUTO) 0 % (1-7); LYMPHOCYTES % (AUTO) 11 % (22-44); MEAN CORPUSCULAR HEMOGLOBIN 29.7 pg (27.0-34.8); MEAN CORPUSCULAR HGB CONC 33.8 g/dL (32.4-35.8); MONOCYTES % (AUTO) 5 % (2-9); NEUTROPHILS % (AUTO) 83 % (42-75); PLATELET COUNT 337 x10^3/uL (130-400); RED BLOOD COUNT 4.74 x10^6/uL (3.82-5.3)
[2020-02-27 15:02] LABS: AMPHETAMINE SCREEN, URINE Negative (Negative); BARBITURATE SCREEN, URINE Negative (Negative); BENZODIAZEPINE SCREEN, URINE Negative (Negative); CANNABINOID SCREEN, URINE Negative (Negative); COCAINE SCREEN, URINE Negative (Negative); METHADONE SCREEN, URINE Negative (Negative); OPIATE SCREEN, URINE Negative (Negative)
[2020-02-27 15:08] LABS: ALANINE AMINOTRANSFERASE 23 U/L (12-78); ALBUMIN 4.2 g/dL (3.4-5.0); ANION GAP 6 mmol/L (5-15); CALCIUM 9.5 mg/dL (8.5-10.1); CHLORIDE 107 mmol/L (98-107); CREATININE 0.77 mg/dL (0.55-1.02); SALICYLATE LEVEL 3.4 mg/dL (2.8-20.0)
[2020-02-27 15:08] LABS: MICROSCOPIC INDICATED
[2020-02-27 15:12] LABS: ALKALINE PHOSPHATASE 104 U/L (45-117); BILIRUBIN,TOTAL 0.3 mg/dL (0.2-1.0); TOTAL PROTEIN 7.9 g/dL (6.4-8.2)
[2020-02-27 15:22] LABS: MD SCAN
--- NOTE | 2020-02-27 15:30 | NUR ---
PT RESTING. SITTER PRESENT
[2020-02-27] MEDS ORDERED: LORazepam 1MG TABLET ONE (15:39)
[2020-02-27] MEDS ORDERED: LORazepam 1MG TABLET PO ONE (16:00)
--- NOTE | 2020-02-27 16:01 | NUR ---
REPORT FROM CRYSTAL. PT IN SECURE ROOM
--- NOTE | 2020-02-27 17:35 | NUR ---
PT VOMITED IN ROOM. ASSISTED PT TO SHOWER. ON HOSPITAL BED.
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
--- NOTE | 2020-02-27 19:26 | NUR ---
Report rec'd from day shift nurse Jarrett. Patient resting comfortably in hospital bed at this time. Offers no compalints. Sitter present
--- NOTE | 2020-02-27 21:46 | NUR ---
Patient resting comfortably at this time in hospital bed. Offers no complaints. Resp unlabored and easy. Sitter present
--- NOTE | 2020-02-27 22:25 | NUR ---
Pts bed noted to be beeping and making noise, Painting Contractor exchanged patient hospital bed for a new one. patient talking but not making sense and just continues to laugh. Sitter present
--- NOTE | 2020-02-27 23:27 | NUR ---
Patient resting at this time. Offers no compalints at this time. Sitter present
--- NOTE | 2020-02-28 01:29 | NUR ---
received report from RN. pt calm and cooperative. no complaints at this time. juice given, and pt happy. call light within reach, and sitter at bedside.
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
[2020-02-28] MEDS ORDERED: LORazepam 1MG TABLET ONE ×2 (02:31→12:28)
--- NOTE | 2020-02-28 02:33 | NUR ---
pt awake and requesting meds to sleep. given meds per emar. and calm. call georges at bedside.
[2020-02-28] MEDS ORDERED: SENNA/DOCUSATE TABLET ONE (02:52)
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
[2020-02-28] MEDS ORDERED: SENNA/DOCUSATE TABLET PO ONE (03:00)
[2020-02-28] MEDS ORDERED: LORazepam 1MG TABLET PO ONE ×2 (05:00→12:30)
--- NOTE | 2020-02-28 05:39 | NUR ---
pt awake, and unable to sleep. reoriented to location when she has flight of words, and paces in room.
--- NOTE | 2020-02-28 06:45 | NUR ---
RECEIVED PT FROM [facility]. PT CALMLY LAYING ON HOSPITAL BED WITH EYES CLOSED, NAD WITH EQUAL CHEST RISE/FALL, NO NEEDS AT THIS TIME, PT REMAINS IN SAFE ENVIRONMENT, SITTER IN VIEW.
--- NOTE | 2020-02-28 06:45 | NUR ---
report and care to day shift RN.
--- NOTE | 2020-02-28 07:42 | NUR ---
BERNARD RN: PACKET FAXED TO [facility], [facility], [facility] AND [facility].
--- NOTE | 2020-02-28 07:53 | NUR ---
Kenan flores in [facility] - 02/28/20 at 0847 by KECIA RN at bedside, provider at bedside.
--- NOTE | 2020-02-28 08:00 | NUR ---
PT CONTINUES TO REST ON HOSPITAL BED WITH EYES CLOSED, NAD WITH EQUAL CHEST RISE/FALL, NO NEEDS AT THIS TIME, PT REMAINS IN SAFE ENVIRONMENT, SITTER IN VIEW.
[2020-02-28 08:30] VITALS: BP 135/92
--- NOTE | 2020-02-28 08:30 | NUR ---
Lela from [facility] called they do not take pt insurance. Pt will have to be self pay.
--- NOTE | 2020-02-28 08:36 | NUR ---
BREAKFAST TRAY GIVEN.
--- NOTE | 2020-02-28 09:02 | NUR ---
PT UPRIGHT ON HOSPITAL BED AWAKE, CALM & COOPERATIVE, OCCAS FLIGHT OF IDEAS BUT RESPONDS APPROP TO STAFF QUESTIONS, NAD, COMFORT MEASURES PROVIDED, PT REMAINS IN SAFE ENVIRONMENT, SITTER IN VIEW.
--- NOTE | 2020-02-28 10:04 | NUR ---
PT CALMLY LAYING ON HOSPITAL BED WITH EYES CLOSED BUT RESPONDS APPROP TO STAFF QUESTIONS, NAD, NO NEEDS AT THIS TIME, PT REMAINS IN SAFE ENVIRONMENT, SITTER IN VIEW.
--- NOTE | 2020-02-28 11:03 | NUR ---
PT CONTINUES TO CALMLY LAYING ON HOSPITAL BED OCCAS SITTING UP BUT RESPONDS APPROP TO STAFF QUESTIONS, NAD, COMFORT MEASURES PROVIDED, PT REMAINS IN SAFE ENVIRONMENT, SITTER IN VIEW.
--- NOTE | 2020-02-28 11:50 | NUR ---
Kenan flores in ED - 02/28/20 at 1153 by ROSA PT CONTINUES TO CALMLY LAYING ON HOSPITAL BED OCCAS SITTING UP BUT RESPONDS APPROP TO STAFF QUESTIONS, NAD, COMFORT MEASURES PROVIDED, PT REMAINS IN SAFE ENVIRONMENT, SITTER IN VIEW.
--- NOTE | 2020-02-28 12:02 | NUR ---
PT SITTING UP ON HOSPITAL BED ASKING FOR "SOMETHING TO HELP ME CALM DOWN"- ERP AWARE, RESPONDS APPROP TO STAFF QUESTIONS WITH OCCAS FLIGHT OF IDEAS, NAD, COMFORT MEASURES PROVIDED, PT REMAINS IN SAFE ENVIRONMENT, SITTER IN VIEW.
[2020-02-28] MEDS ORDERED: ARIPIPRAZOLE 10 MG TABLET ONE (12:28)
[2020-02-28] MEDS: ARIPIPRAZOLE 10 MG TABLET PO ONE ×2 (12:31→12:35)
--- NOTE | 2020-02-28 12:35 | NUR ---
LUNCH TRAY GIVEN
--- NOTE | 2020-02-28 12:42 | NUR ---
TP RN: [facility] ACCEPTING PT AT 1400.
--- NOTE | 2020-02-28 13:04 | NUR ---
PT SITTING ON EDGE OF HOSPITAL BED- "FEEL A LITTLE CALMER", RESPONDS APPROP TO STAFF QUESTIONS WITH OCCAS FLIGHT OF IDEAS, NAD, COMFORT MEASURES PROVIDED INCL EXTRA MEAL TRAY ORDERED, PT REMAINS IN SAFE ENVIRONMENT, SITTER IN VIEW.
--- NOTE | 2020-02-28 13:41 | NUR ---
2ND MEAL TRAY GIVEN
--- NOTE | 2020-02-28 14:19 | NUR ---
Patient & transport given discharge instructions and they have confirmed that they understand the instructions. Patient transferred to U room 381 via WC, report given to Rita.
== END 2020-02-28 14:31 ==
LOC: ED 15:42
DX: F23 Brief psychotic disorder (principal); Z20.828 Contact with and (suspected) exposure to other viral communicable diseases; R45.1 Restlessness and agitation; R41.82 Altered mental status, unspecified; F17.200 Nicotine dependence, unspecified, uncomplicated; Z90.721 Acquired absence of ovaries, unilateral
CPT/HCPCS: 36415; 71045; 80053; 80299; 80307; 80320; 80329; 81001; 84703; 85025; 87086; 87635; 99285; G0480

== ENCOUNTER 2020-02-28 13:45 | Inpatient (IN) | payer MEDICAID ==
[~2020-02-28] VITALS: Ht 170.2 cm; Wt 91.5 kg
[2020-02-28] MEDS ORDERED: POLYETHYLENE GLYCOL 17 GM PACKET PO PRN (14:00)
[2020-02-28] MEDS ORDERED: ACETAMINOPHEN 325 MG TABLET PO PRN (14:00)
[2020-02-28] MEDS ORDERED: DOCUSATE 100 MG CAPSULE PO PRN (14:00)
[2020-02-28] MEDS ORDERED: HALOPERIDOL 5 MG/ML IM PRN (14:30)
[2020-02-28] MEDS ORDERED: LORazepam 2 MG/ML, 1ML IM PRN (14:30)
[2020-02-28] MEDS: NICOTINE 14MG/24 HR PATCH.TD24 TD SCH (15:03)
[2020-02-28 15:17] VITALS: BP 122/85
[2020-02-28 19:05] VITALS: BP 116/75
[2020-02-29] MEDS: HALOPERIDOL 5 MG TABLET PO PRN (03:57)
[2020-02-29] MEDS: NICOTINE 14MG/24 HR PATCH.TD24 TD SCH (08:55)
[2020-02-29 11:14] VITALS: BP 133/91
[2020-02-29] MEDS ORDERED: CARBAMAZEPINE 200 MG TABLET ONE (12:15)
[2020-02-29] MEDS: LURASIDONE 20 MG TABLET PO SCH ×2 (12:36→20:04)
[2020-02-29 19:26] VITALS: BP 125/87
[2020-02-29] MEDS: CARBAMAZEPINE 200 MG TABLET PO SCH (20:04)
[2020-03-01 07:21] VITALS: BP 113/70
[2020-03-01] MEDS: LURASIDONE 20 MG TABLET PO SCH ×2 (08:09→20:38)
[2020-03-01] MEDS: CARBAMAZEPINE 200 MG TABLET PO SCH ×2 (08:09→20:38)
[2020-03-01] MEDS: NICOTINE 14MG/24 HR PATCH.TD24 TD SCH (08:13)
[2020-03-01 08:25] LABS: BASOPHILS % (AUTO) 1 % (0-1); EOSINOPHILS % (AUTO) 1 % (1-7); LYMPHOCYTES % (AUTO) 31 % (22-44); MEAN CORPUSCULAR HEMOGLOBIN 30.2 pg (27.0-34.8); MEAN CORPUSCULAR HGB CONC 34.2 g/dL (32.4-35.8); MEAN PLATELET VOLUME 7.6 fL (7.4-10.4); MONOCYTES % (AUTO) 7 % (2-9); NEUTROPHILS % (AUTO) 60 % (42-75); PLATELET COUNT 307 x10^3/uL (130-400); RED BLOOD COUNT 4.33 x10^6/uL (3.82-5.3); RED CELL DISTRIBUTION WIDTH 14.7 % (9.6-15.2)
[2020-03-01 08:27] LABS: MD NO
[2020-03-01 09:02] LABS: FREE T4 (FREE THYROXINE) 1.19 ng/dL (0.76-1.46); LDL/HDL RATIO 0.5 (0.5-3.0)
[2020-03-01] MEDS: ONDANSETRON ODT 4 MG PO PRN (13:03)
[2020-03-01] MEDS: HALOPERIDOL 5 MG TABLET PO PRN (15:14)
[2020-03-02] MEDS: HALOPERIDOL 5 MG TABLET PO PRN ×3 (02:36→21:19)
[2020-03-02] MEDS: NICOTINE 14MG/24 HR PATCH.TD24 TD SCH (07:46)
[2020-03-02] MEDS: CARBAMAZEPINE 200 MG TABLET PO SCH ×2 (07:47→20:08)
[2020-03-02] MEDS: LURASIDONE 20 MG TABLET PO SCH ×2 (07:47→20:07)
[2020-03-02] MEDS: ONDANSETRON ODT 4 MG PO PRN (09:38)
[2020-03-02] MEDS ORDERED: LURA20TA PO (14:54)
[2020-03-02] MEDS ORDERED: CARB200T4 PO (14:54)
[2020-03-02] MEDS ORDERED: NICO-486 TD (14:54)
[2020-03-02 19:29] VITALS: BP 127/86
[2020-03-03 07:27] VITALS: BP 99/70
[2020-03-03] MEDS: LURASIDONE 20 MG TABLET PO SCH (08:44)
[2020-03-03] MEDS: CARBAMAZEPINE 200 MG TABLET PO SCH (08:44)
[2020-03-03] MEDS ORDERED: NICOTINE 14MG/24 HR PATCH.TD24 TD SCH (09:00)
== END 2020-03-03 12:59 | disposition home or self-care (01) | DRG 750 ==
LOC: 3E 14:22
PROVIDERS: ADMIT Psychiatry & Neurology Psychosomatic Medicine; ATTEND Psychiatry & Neurology Psychosomatic Medicine
DX: F25.0 Schizoaffective disorder, bipolar type (principal); E03.9 Hypothyroidism, unspecified; E66.9 Obesity, unspecified; Z68.31 Body mass index [BMI] 31.0-31.9, adult; F17.200 Nicotine dependence, unspecified, uncomplicated; F41.9 Anxiety disorder, unspecified; Z79.899 Other long term (current) drug therapy; Z91.14 Patient's other noncompliance with medication regimen; Z88.0 Allergy status to penicillin; Z88.8 Allergy status to other drugs, medicaments and biological substances
CPT/HCPCS: 36415; 71045; 80053; 80061; 80299; 80307; 80320; 80329; 81001; 82607; 84439; 84443; 84481; 84703; 85025; 87086; 87635; 93005; 99285; Q0162; G0480; J1630; J2060

== ENCOUNTER 2020-06-14 17:13 | Emergency (ER) | payer MEDICAID ==
[~2020-06-14] VITALS: Ht 170.2 cm; Wt 90.0 kg
[~2020-06-14 17:13] MED LIST changes: +CARB200T4 PO; +LURA20TA PO
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
--- NOTE | 2020-06-14 17:41 | NUR ---
REPORT RECEIVED FROM PEDRO HORNER.
--- NOTE | 2020-06-14 17:51 | NUR ---
PT REFUSED TO PROVIDE URINE SAMPLE AND BLOOD WORK FROM [facility].
--- NOTE | 2020-06-14 18:12 | NUR ---
diet tray ordered at this time.
--- NOTE | 2020-06-14 18:44 | NUR ---
EDMD NOTIFIED ABOUT REFUSAL OF LAB/URINE SAMPLE AT THIS TIME.
--- NOTE | 2020-06-14 18:48 | NUR ---
diet tray provided at this time.
--- NOTE | 2020-06-14 18:59 | NUR ---
pt yelling/screaming at this rn/sitter at this time. this rn educated regarding her behavior at this time.
[2020-06-14 19:13] LABS: BASOPHILS % (AUTO) 2 % (0-1); EOSINOPHILS % (AUTO) 2 % (1-7); LYMPHOCYTES % (AUTO) 37 % (22-44); MEAN CORPUSCULAR HEMOGLOBIN 29.7 pg (27.0-34.8); MEAN CORPUSCULAR HGB CONC 33.3 g/dL (32.4-35.8); MEAN PLATELET VOLUME 7.4 fL (7.4-10.4); MONOCYTES % (AUTO) 10 % (2-9); NEUTROPHILS % (AUTO) 50 % (42-75); PLATELET COUNT 329 x10^3/uL (130-400); RED BLOOD COUNT 4.38 x10^6/uL (3.82-5.3); RED CELL DISTRIBUTION WIDTH 14.2 % (9.6-15.2)
[2020-06-14 19:14] LABS: MD NO
--- NOTE | 2020-06-14 19:14 | NUR ---
urine collected and ua sent at this time.
[2020-06-14 19:23] LABS: ALANINE AMINOTRANSFERASE 17 U/L (12-78); ALBUMIN 3.6 g/dL (3.4-5.0); ANION GAP 5 mmol/L (5-15); CALCIUM 8.7 mg/dL (8.5-10.1); CHLORIDE 105 mmol/L (98-107); CREATININE 0.63 mg/dL (0.55-1.02); SALICYLATE LEVEL 2.7 mg/dL (2.8-20.0)
--- NOTE | 2020-06-14 19:23 | NUR ---
REPORT RECIEVED FROM EVENS GRIFFIN. PT RESTING IN [facility], URINE AND LABS COLLECTED. NO OTHER NEEDS AT THIS TIME
[2020-06-14 19:28] LABS: ALKALINE PHOSPHATASE 83 U/L (45-117); BILIRUBIN,TOTAL 0.1 mg/dL (0.2-1.0)
[2020-06-14 19:34] LABS: AMPHETAMINE SCREEN, URINE Negative (Negative); BARBITURATE SCREEN, URINE Negative (Negative); BENZODIAZEPINE SCREEN, URINE Negative (Negative); CANNABINOID SCREEN, URINE Negative (Negative); COCAINE SCREEN, URINE Negative (Negative); METHADONE SCREEN, URINE Negative (Negative); OPIATE SCREEN, URINE Negative (Negative)
--- NOTE | 2020-06-14 20:01 | NUR ---
tp: called [facility] to assess pt
--- NOTE | 2020-06-14 20:17 | NUR ---
tp: [facility] not accepting pt
--- NOTE | 2020-06-14 20:25 | NUR ---
tp; packet faxed out to all facilities
--- NOTE | 2020-06-14 20:52 | NUR ---
tp:dominique from [facility] called and stated pt would have to be self pay out of pocket there
--- NOTE | 2020-06-14 21:01 | NUR ---
pt resting in [facility], refused hosp bed at this time. pt laughing randomly in room, in line of sight of sitter
[2020-06-14] MEDS ORDERED: HALOPERIDOL 5 MG TABLET ONE (21:06)
[2020-06-14] MEDS ORDERED: HALOPERIDOL 5 MG TABLET PO ONE (21:30)
--- NOTE | 2020-06-14 22:26 | NUR ---
PT PLACED ON HOSPITAL BED, CALL LIGHT WITHIN REACH, IN LINE OF SIGHT OF SITTER
[2020-06-14] MEDS ORDERED: METF500T17 PO (22:36)
[2020-06-14] MEDS ORDERED: LISI-167 PO (22:36)
[2020-06-14] MEDS ORDERED: HALO5TAB5 PO (22:36)
--- NOTE | 2020-06-14 23:02 | NUR ---
pt resting on bed, resp even/unlabored, no needs at this time, in line of sight of sitter
--- NOTE | 2020-06-15 00:20 | NUR ---
PT SATES SHE FEELS ANXIOUS AND TAKES 10 MG BUSPAR AT HOME FOR ANXIETY. PT MEDICATED PER EMAR, NO OTHER NEEDS AT THIS TIME. IN LINE OF SIGHT OF JUAN
[2020-06-15] MEDS ORDERED: BUSPIRONE 10 MG TABLET PO ONE (00:30)
--- NOTE | 2020-06-15 01:57 | NUR ---
PROVIDED SANDWICH PER REQUEST, IN LINE OF SIGHT OF SITTER
--- NOTE | 2020-06-15 02:43 | NUR ---
pt resting in bed, no needs at this time, in line of sight of sitter
--- NOTE | 2020-06-15 06:35 | NUR ---
PT SLEEPING IN BED, RESP EVEN/UNLABORED, IN LINE OF SIGHT OF SITTER
--- NOTE | 2020-06-15 06:54 | NUR ---
REPORT RECIEVED FROM [place]
--- NOTE | 2020-06-15 07:55 | NUR ---
PT awake, resting in bed, safety precautions in place.
[2020-06-15 07:56] VITALS: BP 116/78
--- NOTE | 2020-06-15 08:51 | NUR ---
Meal provided, pt steady ambulation to bathroom, back resting in bed. Safety precautions in place.
--- NOTE | 2020-06-15 10:08 | NUR ---
PT resting in bed, safety precautions in place.
--- NOTE | 2020-06-15 10:51 | NUR ---
Report to Driss HORNER
--- NOTE | 2020-06-15 11:18 | NUR ---
PT RESTING IN BED. SAFETY PRECAUTIONS PUT INTO PLACE. SITTER AT SIDE DOOR WATCHING ROOM. AWAITING TRANSFER.
[2020-06-15] MEDS ORDERED: HYDROXYZINE PAMOATE 50MG CAP PO ONE (11:30)
[2020-06-15] MEDS ORDERED: HALOPERIDOL 5 MG TABLET ONE (11:42)
[2020-06-15] MEDS ORDERED: DIVALPROEX 500 MG TABLET.DR ONE (11:42)
[2020-06-15] MEDS ORDERED: CHLORPROMAZINE 100MG TAB PO ONE (12:00)
[2020-06-15] MEDS ORDERED: DIVALPROEX 500 MG TABLET.DR PO ONE (12:00)
[2020-06-15] MEDS ORDERED: HALOPERIDOL 5 MG TABLET PO ONE (12:00)
--- NOTE | 2020-06-15 12:01 | NUR ---
PT MEDICATED PER MAY, DC INFORMATION REVIEWED WITH PT. TRANSPORTED VIA [employer] TO [facility].
== END 2020-06-15 12:04 | disposition home or self-care (01) ==
LOC: ED 18:06
DX: F20.9 Schizophrenia, unspecified (principal); F17.200 Nicotine dependence, unspecified, uncomplicated; F32.9 Major depressive disorder, single episode, unspecified
CPT/HCPCS: 36415; 80053; 80299; 80307; 80320; 80329; 84703; 85025; 99285; G0480

== ENCOUNTER 2020-07-30 14:41 | Emergency (ER) | payer MEDICAID ==
[~2020-07-30] VITALS: Ht 175.3 cm; Wt 85.0 kg
[~2020-07-30 14:41] MED LIST changes: +HALO5TAB5 PO; +LISI-167 PO; +METF500T17 PO
[2020-07-30 15:09] LABS: BASOPHILS % (AUTO) 1 % (0-1); EOSINOPHILS % (AUTO) 2 % (1-7); LYMPHOCYTES % (AUTO) 34 % (22-44); MEAN CORPUSCULAR HEMOGLOBIN 30.5 pg (27.0-34.8); MEAN PLATELET VOLUME 7.4 fL (7.4-10.4); MONOCYTES % (AUTO) 7 % (2-9); NEUTROPHILS % (AUTO) 57 % (42-75); PLATELET COUNT 332 x10^3/uL (130-400); RED BLOOD COUNT 4.42 x10^6/uL (3.82-5.3); RED CELL DISTRIBUTION WIDTH 14.9 % (9.6-15.2)
[2020-07-30 15:11] LABS: MD NO
--- NOTE | 2020-07-30 15:15 | NUR ---
ROOM SECURED, PT PLACED IN GOWN, BELONGINGS TO LOCKER/BELONGING LIST COMPLETED. URINE COLLECTED, WALKED TO LAB. URINE BLOODY, PT STATES ON MENSES. ERP NOTIFIED. SITTER AT DOORWAY FOR CLOSE OBS.
[2020-07-30 15:20] LABS: ALBUMIN 3.5 g/dL (3.4-5.0); ANION GAP 8 mmol/L (5-15); CALCIUM 8.2 mg/dL (8.5-10.1); CHLORIDE 99 mmol/L (98-107); SALICYLATE LEVEL 3.4 mg/dL (2.8-20.0)
[2020-07-30 15:25] LABS: ALANINE AMINOTRANSFERASE 17 U/L (12-78); ALKALINE PHOSPHATASE 93 U/L (45-117); BILIRUBIN,TOTAL 0.2 mg/dL (0.2-1.0); CREATININE 0.73 mg/dL (0.55-1.02); TOTAL PROTEIN 6.9 g/dL (6.4-8.2)
[2020-07-30] MEDS ORDERED: PLEASE ENTER HEIGHT AND WEIGHT MC SCH (15:30)
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
[2020-07-30 15:54] LABS: MICROSCOPIC INDICATED
[2020-07-30 15:58] LABS: AMPHETAMINE SCREEN, URINE Negative (Negative); BARBITURATE SCREEN, URINE Negative (Negative); BENZODIAZEPINE SCREEN, URINE Negative (Negative); CANNABINOID SCREEN, URINE Negative (Negative); COCAINE SCREEN, URINE Negative (Negative); METHADONE SCREEN, URINE Negative (Negative); OPIATE SCREEN, URINE Negative (Negative)
[2020-07-30] MEDS ORDERED: OLANZAPINE ODT 10MG PO ONE (16:00)
[2020-07-30] MEDS ORDERED: OLANZAPINE 5 MG TABLET PO ONE (16:00)
[2020-07-30] MEDS ORDERED: HALOPERIDOL 5 MG/ML IM PRN (16:00)
[2020-07-30] MEDS ORDERED: DIVALPROEX 500 MG TABLET.DR PO ONE (16:00)
[2020-07-30] MEDS ORDERED: DIVALPROEX 500 MG TABLET.DR ONE (16:07)
[2020-07-30] MEDS ORDERED: OLANZAPINE 5 MG TABLET ONE (16:07)
--- NOTE | 2020-07-30 16:13 | NUR ---
ZYPREXA GIVEN PER ORDER. PT REFUSING DEPAKOTE, STATES "I JUST TOOK TWO OF THOSE THIS MORNING". PT PROVIDED CRACKERS AND JUICE. ED DIET TRAY ORDERED.
--- NOTE | 2020-07-30 16:15 | NUR ---
PT REFUSING EKG. ERP NOTIFIED.
--- NOTE | 2020-07-30 17:00 | NUR ---
ED DIET TRAY PROVIDED. SITTER AT DOORWAY.
--- NOTE | 2020-07-30 17:39 | NUR ---
PSYCHIATRIC PACKET MADE AND FAXED TO [facility], [facility], [place], [facility]
--- NOTE | 2020-07-30 18:27 | NUR ---
PT PROVIDED SNACKS, JUICE AND CHICKEN BROTH PER REQUEST.
--- NOTE | 2020-07-30 19:14 | NUR ---
REPORT TO RAZIA, TRANSFER OF CARE AT THIS TIME.
--- NOTE | 2020-07-30 20:37 | NUR ---
PT PROVIDED A SANDWICH AND CHIPS WITH MILK, PT REQUEST. PT RESTING IN BED, PT RROM SI SECURE, SITTER AT PT DOOR. PT DENIED ANY CURRENT WANTS OR NEEDS. PT UNLABORED BREATHING WITH EQUAL BREATHS.
[2020-07-30] MEDS: HALOPERIDOL 5 MG TABLET PO SCH (21:00)
[2020-07-30] MEDS ORDERED: DIVALPROEX 500 MG TABLET.DR PO SCH (21:00)
[2020-07-30] MEDS ORDERED: DIVALPROEX 250 MG TABLET.DR PO SCH (21:00)
[2020-07-30] MEDS ORDERED: OLANZAPINE 5 MG TABLET PO SCH (21:00)
--- NOTE | 2020-07-30 21:00 | NUR ---
PT REFUSED DEPAKOTE AND HALDOL MEDICATION. PT SAID SHE TOOK DEPALOTE PRIOR TO COMING IN TO ER AND THT SHE IS NOT DUE FOR MORE TILL MORNING. PT REFUSED HALDOL AND SAID SHE WOOULD TAKE ZYPREXA INSTEAD
--- NOTE | 2020-07-30 23:15 | NUR ---
PT RESTING IN BED, PT RROM SI SECURE, SITTER AT PT DOOR. PT DENIED ANY CURRENT WANTS OR NEEDS. PT UNLABORED BREATHING WITH EQUAL BREATHS.
--- NOTE | 2020-07-31 01:02 | NUR ---
RECEIVED REPORT FROM RN. PT SLEEPING AT THIS TIME, NO ACUTE DISTRESS, AND SITTER AT DOOR WAY WITH EYES ON PT.
--- NOTE | 2020-07-31 02:34 | NUR ---
PTS MORNING DIET TRAY ORDERED.
--- NOTE | 2020-07-31 04:39 | NUR ---
PT AWAKE AT THIS TIME, UP TO BATHROOM, AND THE SITTER STATES THAT THE PT IS BECOMING MORE ANXIOUS IN HER ROOM, AND RAMBLING WORDS. RN TALKED WITH PT, AND PRN MEDS PROVIDED AND PT WAS COOPERATIVE IN TAKING HER MEDS. PT REQUESTED A COFFEE AND WILL PROVIDE ONE. PT BACK IN ROOM, AND RESTING. SITTER REMAINS AT DOOR WITH EYES ON PT, AND PT IN HOSPITAL BED.
--- NOTE | 2020-07-31 06:08 | NUR ---
PT WIDE AWAKE AT THIS TIME, AND SITTING UP IN BED. PT HAS BEEN MORE ANXIOUS THIS MORNING WITH THE SITTER. SITTER STATES THAT PT DOESN'T LIKE HER AND HAS OUTBURSTS. AT THIS TIME THE SITTERS HAVE CHANGED AND A MALE SITTER IS AT DOOR WAY WITH EYES ON PT. PT CALM AND COOPERATIVE NOW, AND NO DISTRESS.
--- NOTE | 2020-07-31 06:23 | NUR ---
PTS MEDICATION ORDERED FROM PHARMACY FOR PRN AGITATION. AWARE AND AGREES. PT IN BED AND CALM WHILE SHE WAITS FOR HER MEDICINE.
--- NOTE | 2020-07-31 06:44 | NUR ---
PT PROVIDED WITH PRN MEDICATION ON REQUEST, AND AWARE.
--- NOTE | 2020-07-31 06:52 | NUR ---
REPORT AND CARE TO RAUL HORNER.
--- NOTE | 2020-07-31 07:14 | NUR ---
Report from Chalo, RN. Pt requested femine hygeine products, given. Pt yelling at this RN that she needs blankets. Pt educated that she did not allow for enough time for this RN to do a linen change, pt educated not to yell, given another blanket and pt cooperative with VS.
[2020-07-31 07:16] VITALS: BP 126/86
[2020-07-31] MEDS ORDERED: DIVALPROEX 500 MG TABLET.DR ONE (08:15)
[2020-07-31] MEDS ORDERED: HALOPERIDOL 5 MG TABLET ONE (08:15)
[2020-07-31] MEDS: HALOPERIDOL 5 MG TABLET PO SCH (08:20)
--- NOTE | 2020-07-31 08:21 | NUR ---
Pt provided with breakfast, cooperative with morning med pass.
[2020-07-31] MEDS ORDERED: OLANZAPINE 5 MG TABLET PO SCH (09:00)
[2020-07-31] MEDS ORDERED: DIVALPROEX 500 MG TABLET.DR PO SCH (09:00)
--- NOTE | 2020-07-31 09:15 | NUR ---
Pt walked around unit with this RN. Requesting medications to help her "calm down." Pt medicated per MAR with available PRN.
[2020-07-31] MEDS ORDERED: HALOPERIDOL 5 MG/ML ONE (09:41)
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
--- NOTE | 2020-07-31 10:23 | NUR ---
Pt up to shower. Sitter outside.
== END 2020-07-31 13:23 | disposition home or self-care (01) ==
LOC: ED 20:59
DX: F25.9 Schizoaffective disorder, unspecified (principal); R45.851 Suicidal ideations; F23 Brief psychotic disorder; R94.31 Abnormal electrocardiogram [ECG] [EKG]; Z72.9 Problem related to lifestyle, unspecified; Z90.721 Acquired absence of ovaries, unilateral
CPT/HCPCS: 36415; 80053; 80164; 80299; 80307; 80320; 80329; 81001; 84703; 85025; 87086; 93005; 96372; 99285; J1630; Q0161; Q0177; G0480

== ENCOUNTER 2020-08-18 22:22 | Emergency (ER) | payer MEDICAID ==
[~2020-08-18] VITALS: Ht 172.7 cm; Wt 90.0 kg
[2020-08-18 22:32] VITALS: BP 159/91
--- NOTE | 2020-08-18 23:00 | NUR ---
PT GIVEN FOOD, TBDC.
--- NOTE | 2020-08-18 23:13 | NUR ---
PT TOLD REPEATEDLY TO STAY IN ROOM AND STOP WANDERING HALLWAY.
--- NOTE | 2020-08-18 23:45 | NUR ---
CALLED DISPATCH FOR ADDRESS: [phone], [place]
--- NOTE | 2020-08-19 00:03 | NUR ---
SECURITY WAS NOTIFIED OF PTS DISAPPEARANCE, CHECKED PREMISES, DID NOT FIND.
--- NOTE | 2020-08-19 00:09 | NUR ---
ATTEMPT TO CALL [facility] X[facility], LINE BUSY.
--- NOTE | 2020-08-19 01:37 | NUR ---
VETERINARY X RAY OPERATOR: SMITH CALLED STATING THEY FOUND PT. ADDRESS GIVEN TO SMITH AND PT. TO BE TAKEN BACK TO [facility].
== END 2020-08-19 00:10 | disposition left against medical advice (07) ==
LOC: ED 22:38
DX: F25.8 Other schizoaffective disorders (principal); F28 Other psychotic disorder not due to a substance or known physiological condition
CPT/HCPCS: 99284

== ENCOUNTER 2020-11-11 18:34 | Emergency (ER) | payer MEDICAID ==
[~2020-11-11] VITALS: Ht 170.2 cm; Wt 81.8 kg
[~2020-11-11 18:34] MED LIST changes: +OLAN5TAB69 PO; -OLAN5TAB9 PO
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
--- NOTE | 2020-11-11 18:55 | NUR ---
PT REPORT TO EVENS JAMISON
--- NOTE | 2020-11-11 19:07 | NUR ---
CARE ASSUMED AT THIS TIME. FIRST CONTACT WITH PT. PT REQUESTING JUICE AND ONCE GIVEN LOOKED AT ME AND SAID " ARE YOU "? PT NOW RESTING IN THE BED. GARAGE DOORS LOCKED. SITTER AT BEDSIDE. PSYCH PERCAUTIONS MAINTAINED.
--- NOTE | 2020-11-11 19:10 | NUR ---
LAB AT BEDSIDE OBTAINING BLOOD.
[2020-11-11 19:20] LABS: HCG UR SG 1.024 (1.003-1.030)
[2020-11-11 19:24] LABS: BASOPHILS % (AUTO) 1 % (0-1); EOSINOPHILS % (AUTO) 1 % (1-7); LYMPHOCYTES % (AUTO) 31 % (22-44); MEAN CORPUSCULAR HEMOGLOBIN 29.8 pg (27.0-34.8); MEAN CORPUSCULAR HGB CONC 33.7 g/dL (32.4-35.8); MEAN PLATELET VOLUME 8.4 fL (7.4-10.4); MONOCYTES % (AUTO) 5 % (2-9); NEUTROPHILS % (AUTO) 62 % (42-75); PLATELET COUNT 382 x10^3/uL (130-400); RED BLOOD COUNT 4.54 x10^6/uL (3.82-5.3); RED CELL DISTRIBUTION WIDTH 12.5 % (9.6-15.2)
[2020-11-11 19:36] LABS: AMPHETAMINE SCREEN, URINE Negative (Negative); BARBITURATE SCREEN, URINE Negative (Negative); BENZODIAZEPINE SCREEN, URINE Negative (Negative); CANNABINOID SCREEN, URINE Negative (Negative); COCAINE SCREEN, URINE Negative (Negative); METHADONE SCREEN, URINE Negative (Negative); OPIATE SCREEN, URINE Negative (Negative)
[2020-11-11 19:37] LABS: ALBUMIN 3.4 g/dL (3.4-5.0); ANION GAP 6 mmol/L (5-15); CALCIUM 8.9 mg/dL (8.5-10.1); CHLORIDE 108 mmol/L (98-107)
[2020-11-11 19:38] LABS: CREATININE 0.82 mg/dL (0.55-1.02)
[2020-11-11 19:50] LABS: SALICYLATE LEVEL < 1.7 mg/dL (2.8-20.0)
--- NOTE | 2020-11-11 20:40 | NUR ---
PT LEFT HER ROOM AND WOULD NOT COME BACK. PT REPROTS "I''M FUCKING LEAVING." PT NOT MAKING SENSE WITH HER WORDS. SECURITY CALLED AND PT PLACED IN 4 POINT RESTRAINTS. MD NOTIFIED AND MEDICATION ORDERED AT THIS TIME. WILL CONTINUE TO MONITOR. SITTER AT BEDSIDE.
[2020-11-11] MEDS ORDERED: HALOPERIDOL 5 MG/ML ONE (20:52)
[2020-11-11] MEDS ORDERED: HALOPERIDOL 5 MG/ML IM ONE (21:00)
[2020-11-11] MEDS ORDERED: LORazepam 1MG TABLET PO ONE (21:30)
[2020-11-11] MEDS ORDERED: LORazepam 1MG TABLET ONE ×2 (21:39→21:41)
--- NOTE | 2020-11-11 23:30 | NUR ---
PROVIDED PT WITH APPLE JUICE.
--- NOTE | 2020-11-11 23:55 | NUR ---
PSYCH PERCAUTIONS MAINTAINED. SITTER AT BEDSIDE.
--- NOTE | 2020-11-12 00:10 | NUR ---
PT RESTRAINTS D/C AT THIS TIME. PT LAYING QUIETLY IN BED TRYING TO FALL ASLEEP. WILL CONTINUE TO MONITOR. PSYCH PRECAUTIONS MAINTAINED. SITTER AT BEDSIDE
--- NOTE | 2020-11-12 00:11 | NUR ---
NOTIFIED OF PT INCREASING AGGITATIONAND SHOUTING/YELLING. SEE EMAR FOR NEW ORDERS
[2020-11-12] MEDS ORDERED: LORazepam 1MG TABLET ONE (00:13)
[2020-11-12] MEDS ORDERED: HALOPERIDOL 5 MG/ML ONE (00:13)
[2020-11-12] MEDS ORDERED: LORazepam 1MG TABLET PO ONE (00:30)
[2020-11-12] MEDS ORDERED: HALOPERIDOL 5 MG/ML IM PRN (00:30)
[2020-11-12 01:00] VITALS: BP 133/69
--- NOTE | 2020-11-12 01:23 | NUR ---
PT SLEPEING. NADN. PSYCH PRECAUTIONS MAINTAINED. GARAGE DOORS DOWN AND LOCKED. SITTER AT BESIDE.
--- NOTE | 2020-11-12 03:54 | NUR ---
PT SLEEPING ON STRETCHER. NADN. EVEN CHEST RISE AND FALL. PSYCH PERCAUTIONS MAINTAINED. SITTER AT BEDSIDE.
--- NOTE | 2020-11-12 04:34 | NUR ---
PT SLEEPING ON STRETCHER. NADN. EVEN CHEST RISE AND FALL. PSYCH PERCAUTIONS MAINTAINED. SITTER AT BEDSIDE.
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
--- NOTE | 2020-11-12 06:15 | NUR ---
PT SLEEPING ON STRETCHER. NADN. EVEN CHEST RISE AND FALL. PSYCH PERCAUTIONS MAINTAINED. SITTER AT BEDSIDE.
--- NOTE | 2020-11-12 06:55 | NUR ---
CARE TRASNFERED. REPORT GIVEN TO EVENS HILLS
--- NOTE | 2020-11-12 07:16 | NUR ---
First contact, pt sleeping wakes up with verbal. Sitter in line of site, safety updated.
--- NOTE | 2020-11-12 10:53 | NUR ---
Ate breakfast, now resting is calm. Sitter in line of site.
--- NOTE | 2020-11-12 12:14 | NUR ---
Pt sleeping, sitter in line of site.
--- NOTE | 2020-11-12 13:22 | NUR ---
Report to EVENS Najera
--- NOTE | 2020-11-12 14:46 | NUR ---
[facility] ACCEPTED PT. PT RESTING IN BED, SAFETY PRECAUTIONS IN PLACE.
--- NOTE | 2020-11-12 14:48 | NUR ---
THROUGHTPUT: PT MEDICALLY CLEARED ON LEGAL HOLD, [facility] ACCEPTED, CALLED [facility] AUTH#[id number]. BONE CHAR KILN OPERATOR WITH [facility] WILL BE AT [phone]. PACKET MADE
--- NOTE | 2020-11-12 15:14 | NUR ---
PT RESTING IN BED, AWARE OF TRANSPORT. MEAL PROVIDED. SAFETY PRECAUTIONS IN PLACE.
--- NOTE | 2020-11-12 15:53 | NUR ---
REPORT TO SMITH
== END 2020-11-12 16:18 ==
LOC: ED 18:45
DX: F31.2 Bipolar disorder, current episode manic severe with psychotic features (principal); F23 Brief psychotic disorder; Z20.822 Contact with and (suspected) exposure to COVID-19
CPT/HCPCS: 36415; 80048; 80299; 80307; 80320; 81025; 82040; 85025; 87635; 96372; 99285; J1630; 80329; G0480